=== PATIENT | female | born 1990 | race American Indian/Alaskan Native ===

== ENCOUNTER 2019-01-31 15:39 | Outpatient (CLI) | payer MEDICAID ==
[2019-01-31] MEDS ORDERED: LACTATED RINGERS 1,000 ML IV SCH (17:00)
[2019-01-31 17:20] VITALS: BP 104/60
[2019-01-31 17:52] LABS: Bilirubin,Urine NEG (Negative); Blood,Urine NEG (Negative); Color,Urine Yellow (Yellow); Mucus,Urine FEW /HPF; Protein,Urine <15 mg/dL mg/dL (Negative); Urobilinogen,Urine < 2.0 mg/dL (<2.0)
== END 2019-01-31 19:23 | disposition home or self-care (01) ==
LOC: TRG 15:39
PROVIDERS: ATTEND Obstetrics & Gynecology
DX: O99.332 Smoking (tobacco) complicating pregnancy, second trimester (principal); O47.02 False labor before 37 completed weeks of gestation, second trimester; Z3A.25 25 weeks gestation of pregnancy
CPT/HCPCS: 81001